=== PATIENT | female | born 2005 | race African-American/Black ===

== ENCOUNTER 2023-12-31 18:19 | Emergency (ER) | payer OTHER ==
[~2023-12-31] VITALS: Ht 175.3 cm; Wt 61.0 kg
[2023-12-31 18:32] VITALS: TEMP 98.2; O2SAT 99
[2023-12-31 19:56] VITALS: BP 122/71; PULSE 66; RESP 18
[2024-01-03 04:09] LABS: CHLAMYDIA TRACHOMATIS NAA Negative (Negative); NEISSERIA GONORRHOEAE NAA Negative (Negative)
== END 2023-12-31 20:00 | disposition home or self-care (01) ==
LOC: ER 18:19
DX: Z32.02 Encounter for pregnancy test, result negative (principal)
CPT/HCPCS: 36415; 81025; 84702; 87491; 87591; 99283

== ENCOUNTER 2025-01-16 13:32 | Emergency (ER) | payer OTHER ==
[~2025-01-16] VITALS: Ht 177.8 cm; Wt 64.0 kg
[2025-01-16 13:42] VITALS: TEMP 36.9; O2SAT 100
[2025-01-16 16:15] VITALS: BP 120/49; PULSE 80; RESP 16; O2SAT 100
== END 2025-01-16 16:19 | disposition home or self-care (01) ==
LOC: ER 13:32
DX: T19.2XXA Foreign body in vulva and vagina, initial encounter (principal); W44.8XXA Other foreign body entering into or through a natural orifice, initial encounter; Y93.89 Activity, other specified; Y92.89 Other specified places as the place of occurrence of the external cause; Y99.8 Other external cause status
CPT/HCPCS: 99284; Z7610